=== PATIENT | male | born 1990 | race Caucasian/White ===

== ENCOUNTER → 2016-04-21 | Day surgery (SDC) | payer BC, SELFPAY ==
[~2016-04-21] VITALS: Ht 190.5 cm; Wt 92.5 kg
[~2016-04-21] MED LIST: PROTONIX40 MG PO; TUMS REGULAR ST1 TAB PO
== END ==
LOC: GPOC 04-18 14:00 → GEND 06:44 → GPOC 14:00
PROC: 0DB68ZZ Excision of Stomach, Via Natural or Artificial Opening Endoscopic (ICD-10-PCS; principal; 2016-04-21)
PROC: 0DBE8ZZ Excision of Large Intestine, Via Natural or Artificial Opening Endoscopic (ICD-10-PCS; 2016-04-21)
DX: K31.9 Disease of stomach and duodenum, unspecified (principal); K62.5 Hemorrhage of anus and rectum; K21.0 Gastro-esophageal reflux disease with esophagitis; K62.89 Other specified diseases of anus and rectum; Z79.899 Other long term (current) drug therapy
CPT/HCPCS: J2001; J7030